=== PATIENT | female | born 1970 | race African-American/Black ===

== ENCOUNTER 2025-05-03 09:39 | Emergency (ER) | payer OTHER ==
[~2025-05-03] VITALS: Ht 162.6 cm; Wt 54.4 kg
[2025-05-03] MEDS ORDERED: ACETAMINOPHEN 500 MG TABLET ONE (10:18)
[2025-05-03] MEDS ORDERED: IBUPROFEN 400 MG TABLET ONE (10:18)
[2025-05-03] MEDS: ACETAMINOPHEN 500 MG TABLET PO ONE (10:20)
[2025-05-03] MEDS: IBUPROFEN 400 MG TABLET PO ONE (10:20)
[2025-05-03 11:21] VITALS: BP 111/71; O2SAT 98
== END 2025-05-03 11:25 | disposition home or self-care (01) ==
LOC: ER 09:39
DX: S13.4XXA Sprain of ligaments of cervical spine, initial encounter (principal); M25.512 Pain in left shoulder; R51.9 Headache, unspecified; R07.9 Chest pain, unspecified; V43.52XA Car driver injured in collision with other type car in traffic accident, initial encounter; Y93.89 Activity, other specified; Y92.488 Other paved roadways as the place of occurrence of the external cause; Y99.8 Other external cause status
CPT/HCPCS: 71045; A4606; A4663; A9150